=== PATIENT | female | born 1935 | race Caucasian/White ===

== ENCOUNTER → 2017-06-16 | Outpatient (CLI) | payer OTHER ==
[~2017-06-16] MED LIST: *RESP: ALBUTEROL 2.5 MG/3 ML NEB (PRN) PERIprocedural Use ONLY NEB; CHLORHEXIDINE GLUCONATE 2 % 1 PACK (2 CLOTHS) TOPICAL; DO NOT ADM ANY ANTICOAGULANT DRUGS; METOPROLOL TARTRATE 25 MG TAB PO; ONABOTULINUMTOXINA INJ 100 UNITS/VIAL; POVIDONE IODINE 5% (ANTISEPSIS KIT) 4 APPLICATIONS EACH NARE; PROPOFOL 200 MG/20 ML AMP IV; SODIUM CHLORID 0.9% 500 ML IV; SUCCINYLCHOLINE CHLORIDE 100 MG/5 ML SYRINGE IV PUSH
[2017-06-16] MEDS: LACTATED RINGER'S 1000 ML IV (09:05)
== END ==
LOC: HEND 07:41
DX: R13.10 Dysphagia, unspecified (principal); K22.0 Achalasia of cardia; I85.00 Esophageal varices without bleeding; K31.7 Polyp of stomach and duodenum; I86.4 Gastric varices; R00.0 Tachycardia, unspecified
CPT/HCPCS: 00731; 88305; 88312; 93005; 94664